=== PATIENT | male | born 1960 | race Two or more races ===

== ENCOUNTER 2019-11-26 15:24 | Emergency (ER) | payer SELFPAY ==
--- NOTE | 2019-11-26 15:28 | NUR ---
CALLED TO TRIAGE, NO ANSWER
--- NOTE | 2019-11-26 15:35 | NUR ---
Called No response. Eloped prior to triage
== END 2019-11-26 15:36 | disposition home or self-care (01) ==
LOC: ER 15:30
DX: Z53.21 Procedure and treatment not carried out due to patient leaving prior to being seen by health care provider (principal)